=== PATIENT | male | born 1975 ===

== ENCOUNTER 2024-09-16 12:44 | Day surgery (SDC) | payer OTHER ==
[~2024-09-16 12:44] MED LIST: KETO10TA2 PO; MIRALAX17 GM PO; TRAMADOL HCL50 MG PO; TYLENOL ARTHRI650 MG PO
[2024-09-16] MEDS ORDERED: CEFAZOLIN SODIUM 1,000 MG VIAL IV ONE (15:45)
[2024-09-16] MEDS ORDERED: BUPIVACAINE HCL 30 ML VIAL IJ ONE (15:45)
[2024-09-16] MEDS ORDERED: KETOROLAC TROMETHAMINE 30 MG VIAL IV ONE (16:00)
[2024-09-16] MEDS ORDERED: MORPHINE SULFATE 4 MG/ML VIAL IV ONE ×2 (17:50→18:20)
== END 2024-09-16 20:20 | disposition home or self-care (01) ==
LOC: CIR.AMB 12:44
PROVIDERS: ATTEND Surgery
DX: K40.90 Unilateral inguinal hernia, without obstruction or gangrene, not specified as recurrent (principal); K42.0 Umbilical hernia with obstruction, without gangrene
CPT/HCPCS: 49650; 49592; C1781